=== PATIENT | female | born 1960 | race Caucasian/White ===

== ENCOUNTER → 2020-10-28 | Outpatient (CLI) | payer OTHER ==
[~2020-10-28] MED LIST: ADVAIR 100-501 EACH INH; ALBUTEROL2.5 MG/3 M INH; GABAPENTIN600 MG PO; HYDROCODON-ACE1 EAC2 PO; TYLENOL 500 MG500 MG PO; VIT D PO
== END ==
LOC: KOH-I 14:30
DX: Z12.2 Encounter for screening for malignant neoplasm of respiratory organs (principal); F17.210 Nicotine dependence, cigarettes, uncomplicated
CPT/HCPCS: 71271

== ENCOUNTER 2021-04-11 15:49 | Emergency (ER) | payer OTHER ==
[2021-04-11 18:49] LABS: RED BLOOD COUNT 4.6 M/UL (4.00-5.10); WHITE BLOOD COUNT 9.5 K/UL (4.5-11.0)
[2021-04-11 19:08] LABS: BUN/CREATININE RATIO 25 (0-10)
== END 2021-04-11 19:55 | disposition home or self-care (01) ==
LOC: ER1 15:49
PROVIDERS: Family Medicine
DX: C90.00 Multiple myeloma not having achieved remission (principal); E11.9 Type 2 diabetes mellitus without complications; I10 Essential (primary) hypertension; F17.210 Nicotine dependence, cigarettes, uncomplicated
CPT/HCPCS: 80053; 81001; 85025; 96372; 99283; J2550

== ENCOUNTER → 2021-06-03 | Outpatient (CLI) | payer OTHER ==
[2021-06-03 15:02] LABS: BUN/CREATININE RATIO 19 (0-10)
[2021-06-04 11:10] LABS: CREATININE, URINE 367.6 mg/dL (Not Estab.)
== END ==
LOC: LAB 13:41
PROVIDERS: Internal Medicine Nephrology
DX: R74.8 Abnormal levels of other serum enzymes (principal); N17.9 Acute kidney failure, unspecified
CPT/HCPCS: 36415; 80053; 81001; 82043; 82105; 82570; 83880

== ENCOUNTER → 2021-10-31 | Outpatient (CLI) | payer OTHER ==
[2021-11-01 07:12] LABS: A/G RATIO 1.3 (1.2-2.2); ALKALINE PHOSPHATASE, S 101 IU/L (44-121); ALT (SGPT) 30 IU/L (0-32); AST (SGOT) 28 IU/L (0-40); BILIRUBIN, TOTAL <0.2 mg/dL (0.0-1.2); BUN 12 mg/dL (8-27); BUN/CREATININE RATIO 16 (12-28); CALCIUM, SERUM 9.5 mg/dL (8.7-10.3); CARBON DIOXIDE, TOTAL 23 mmol/L (20-29); CHLORIDE, SERUM 98 mmol/L (96-106); CREATININE, SERUM 0.75 mg/dL (0.57-1.00); EGFR IF AFRICN AM 99 (>59); EGFR IF NONAFRICN AM 86 (>59); GLOBULIN, TOTAL 3.4 g/dL (1.5-4.5); GLUCOSE, SERUM 97 mg/dL (65-99); POTASSIUM, SERUM 4.5 mmol/L (3.5-5.2); PROTEIN, TOTAL, SERUM 7.8 g/dL (6.0-8.5); SODIUM, SERUM 137 mmol/L (134-144)
[2021-11-01 10:15] LABS: CREATININE, URINE 142.3 mg/dL (Not Estab.)
== END ==
LOC: LAB 12:09
PROVIDERS: Internal Medicine Nephrology
DX: N17.9 Acute kidney failure, unspecified (principal)
CPT/HCPCS: 36415; 80053; 81001; 82043; 82570

== ENCOUNTER → 2021-10-31 | Outpatient (CLI) | payer OTHER | LOC: KOH-I 10:31 | DX: M50.30 Other cervical disc degeneration, unspecified cervical region (principal); F17.210 Nicotine dependence, cigarettes, uncomplicated; M47.812 Spondylosis without myelopathy or radiculopathy, cervical region; M47.814 Spondylosis without myelopathy or radiculopathy, thoracic region; M47.816 Spondylosis without myelopathy or radiculopathy, lumbar region | CPT/HCPCS: 71271; 72040; 72070; 72100 ==

== ENCOUNTER → 2022-03-02 | Outpatient (CLI) | payer OTHER ==
[2022-03-02 19:46] LABS: BUN/CREATININE RATIO 18 (0-10)
== END ==
LOC: LAB 18:26
PROVIDERS: Internal Medicine Nephrology
DX: N18.9 Chronic kidney disease, unspecified (principal)
CPT/HCPCS: 80053; 81001; 82043; 82570; 84156